=== PATIENT | male | born 1975 | race African-American/Black ===

== ENCOUNTER 2021-12-20 20:46 | Emergency (ER) | payer OTHER, SELFPAY ==
[2021-12-20 20:48] VITALS: BP 179/107; PULSE 67; RESP 14; TEMP 37.2; O2SAT 100; BMI 35.4
--- NOTE | 2021-12-20 21:57 | ED.VIS.DENTA ---
HPI History of Present Illness Chief Complaint: Dental Informant: patient Narrative Narrative: Patient's had problems with his teeth in the past. About 5 or 6 days ago he started some pain in the right upper jaw. He had some Augmentin leftover from a prior prescription. He started that and took it on Sunday and Sunday. The antibiotics were only 3 months old. He saw his dentist on Sunday. They continue the Augmentin with a new prescription. He is now completed about 4 days worth and he states it is just still hurting. It does not seem to be improving. He states they have done x-rays of the tooth. They know there is infection. He is not getting facial swelling or trouble swallowing. No fevers chills sweats. He has hydrocodone at home that he was given yesterday. He is concerned he might need a different antibiotic. Nothing makes this really better or worse. PFSH PFSH Medical History no medical history Home Medications amoxicillin 875 mg-potassium clavulanate 125 mg tablet 1 tab PO BID 12/20/21 [History Last Taken Unknown] clindamycin HCl 300 mg capsule (Cleocin HCl) 300 mg PO Q6H #40 caps 12/20/21 [Rx Last Taken Unknown] hydrocodone 5 mg-acetaminophen 300 mg tablet 1 tab PO Q4H PRN PRN Pain 12/20/21 [History Last Taken Unknown] Allergy/AdvReac Type Severity Reaction Status Date / Time No Known Allergies Allergy Verified 12/20/21 20:48 Social History Smoking Status: Never smoker ROS ROS ED Constitutional Constitutional ED: Denies chills, fever(s) or subjective Eyes Eyes: Denies change in vision ENT ENT ED: Reports other Details: Dental pain as in history of present illness peer ; Denies ear pain, rhinorrhea or sore throat Cardiovascular Cardiovascular: Denies chest pain Respiratory/Chest Respiratory/Chest: Denies cough Gastrointestinal Gastrointestinal: Denies nausea or vomiting Musculoskeletal Musculoskeletal: Denies neck pain Integumentary Denies rash Hematologic/Lymphatic Hematologic/Lymphatic: Denies easy bleeding or easy bruising Allergic/Immunologic Allergic/Immunologic ED: Denies urticaria EXAM Physical Exam Const Vital Signs: 12/20/21 20:48 Temperature 99 F Temperature Source Temporal Pulse Rate 67 Respiratory Rate 14 Blood Pressure 179/107 H Blood Pressure Mean 131 Pulse Ox 100 Oxygen Delivery Method Room Air Positive well nourished and well developed General Appearance ED: well developed and NAD HEENT HEENT Narrative: Speech is normal. There is no facial swelling. He has multiple teeth that are missing and he has had a lot of cavities filled and some poor dentition. But he does have tenderness at the right upper premolars. There is mild gum erythema but no abscess that I can see to drain. No real sinus tenderness. No swelling around the eye. Auricle of the ear is normal. No TMJ tenderness. I see no lymphadenopathy on the neck. No temporal artery tenderness. No facial rashes. Eyes PERRL and EOMs intact bilaterally Neck no lymphadenopathy Resp normal respiratory effort Cardio regular rate, regular rhythm and no murmurs Neuro Sensorium / Orientation: alert Psych mental status grossly normal MDM MDM MDM Narrative Medical decision making narrative: Since patient has been on about 4 days of antibiotics, we will switch him to clindamycin. He already has pain meds at home. I will start the first dose here. He states he is going to be seeing his dentist tomorrow. Discharge Plan Triage Chief Complaint: Dental ED Provider: Gerson Nino Dx/Rx/DC Orders Clinical Impression: Dental abscess Instructions: Dental Abscess Prescriptions: New clindamycin HCl [Cleocin HCl] 300 mg capsule 300 mg PO Q6H Qty: 40 0RF No Action amoxicillin-pot clavulanate 875-125 mg tablet 1 tab PO BID Label Comments: TAKE 1 TABLET BY MOUTH EVERY 12 HOURS UNTIL FINISHED hydrocodone-acetaminophen 5-300 mg tablet 1 tab PO Q4H PRN PRN (Reason: Pain) Label Comments: TAKE 1 TABLET BY MOUTH FOUR TIMES A DAY Activity Restrictions/Additional Instructions: Stop your amoxicillin clavulanic acid and start clindamycin. See your dentist for follow-up and recheck. Disposition Disposition: Home, Self Care
[2021-12-20] MEDS: Clindamycin HCl 150 MG Capsule 300 MG PO (22:18)
[2021-12-20] MEDS: Morphine 4 MG/ML Syringe IM (22:47)
[2021-12-20] MEDS: Ketorolac 15 MG/ML Vial IM (22:48)
== END 2021-12-20 23:09 | disposition home or self-care (01) ==
PROVIDERS: Emergency Provider Emergency Medicine; Visit Provider Emergency Medicine
DX: K04.7 Periapical abscess without sinus (principal)
CPT/HCPCS: 96372; 99283